=== PATIENT | female | born 1935 | race Hispanic/Latino ===

== ENCOUNTER 2023-02-28 14:22 | Emergency (ER) | payer MEDICARE, SELFPAY | END 2023-02-28 16:01 | disposition home or self-care (01) | LOC: ERS 14:22 | DX: L03.113 Cellulitis of right upper limb (principal); I10 Essential (primary) hypertension; E11.9 Type 2 diabetes mellitus without complications; Z79.82 Long term (current) use of aspirin; Z79.899 Other long term (current) drug therapy ==

== ENCOUNTER 2023-04-11 07:26 | Inpatient (IN) | payer MEDICARE ==
[2023-04-09 14:23] VITALS: BMI 27.8
[2023-04-11] MEDS ORDERED: Protamine Sulfate 50 MG/5 ML VIAL ONE ×2 (08:21→08:22)
[2023-04-11] MEDS ORDERED: Clindamycin/D5W 900 mg/50 ml Premix Bag ONE (08:21)
[2023-04-11] MEDS ORDERED: Heparin 10,000 UNITS/ 10 ML VIAL ONE ×2 (08:21→10:05)
[2023-04-11] MEDS ORDERED: fentaNYL 50 mcg/mL 1 mL Vial ONE ×3 (09:04→13:05)
[2023-04-11] MEDS ORDERED: Rocuronium Bromide 10 MG/ML (10ML VIAL) ONE (09:23)
[2023-04-11] MEDS ORDERED: Glycopyrrolate 0.2 MG/ML 5 ML SYRINGE ONE (09:23)
[2023-04-11] MEDS ORDERED: NEOSTIGMINE 3 MG/3 ML SYR 3 MG/3 ML SYRINGE ONE (09:23)
[2023-04-11] MEDS ORDERED: PROPOFOL 200 MG/20 ML VIAL ONE (09:23)
[2023-04-11] MEDS ORDERED: Ondansetron PF 4 MG/2 ML Vial ONE (09:23)
[2023-04-11] MEDS ORDERED: Ciprofloxacin Lactate/D5W 400 mg/200 ml Premix ONE (12:00)
[2023-04-11] MEDS ORDERED: Iopamidol 370 76% 100 ML VIAL ONE (12:17)
== END 2023-04-11 15:30 | disposition home or self-care (01) | DRG 274 ==
LOC: SURG A 07:26
PROVIDERS: ADMIT Internal Medicine Cardiovascular Disease; ATTEND Internal Medicine Cardiovascular Disease
PROC: 02L73DK Occlusion of Left Atrial Appendage with Intraluminal Device, Percutaneous Approach (ICD-10-PCS; principal; 2023-04-11)
PROC: B246ZZ4 Ultrasonography of Right and Left Heart, Transesophageal (ICD-10-PCS; 2023-04-11)
DX: I48.19 Other persistent atrial fibrillation (principal); E11.51 Type 2 diabetes mellitus with diabetic peripheral angiopathy without gangrene; Z96.653 Presence of artificial knee joint, bilateral; N18.9 Chronic kidney disease, unspecified; I25.10 Atherosclerotic heart disease of native coronary artery without angina pectoris; E11.22 Type 2 diabetes mellitus with diabetic chronic kidney disease; E78.5 Hyperlipidemia, unspecified; I12.9 Hypertensive chronic kidney disease with stage 1 through stage 4 chronic kidney disease, or unspecified chronic kidney disease; Z82.49 Family history of ischemic heart disease and other diseases of the circulatory system; Z86.73 Personal history of transient ischemic attack (TIA), and cerebral infarction without residual deficits; Z79.82 Long term (current) use of aspirin; Z79.01 Long term (current) use of anticoagulants; Z98.890 Other specified postprocedural states; Z88.8 Allergy status to other drugs, medicaments and biological substances; Z98.49 Cataract extraction status, unspecified eye; Z88.0 Allergy status to penicillin; Z79.4 Long term (current) use of insulin
CPT/HCPCS: 33340; 85347; 86850; 86900; 86901; 93005; 93010; 93306; 93312; C1759; C1760; C1769; C1894; J0744; J1644; J2405; J2704; J2720; J3010; J3490; Q9967

== ENCOUNTER 2023-05-23 05:57 | Day surgery (SDC) | payer MEDICARE ==
[2023-05-21 14:51] VITALS: BMI 27.4
[2023-05-23 07:10] LABS: Hemoglobin 10.9 g/dL (12.0-16.0); Mean Corpuscular HGB CONC 31.1 g/dL (32.0-36.0); Mean Corpuscular Hemoglobin 28.5 pg (27.0-31.0); Mean Corpuscular Volume 91.6 fl (78.0-98.0); Mean Platelet Volume 12.2 fL (7.4-10.4); Platelet Count 254 10x3/uL (130-400); RBC Distribution Width 15.5 % (11.5-14.5); Red Blood Cell (RBC) Count 3.83 mill/uL (4.20-5.40); White Blood Cell (WBC) Count 7.8 10x3/uL (4.8-10.8)
[2023-05-23] MEDS ORDERED: fentaNYL 50 mcg/mL 1 mL Vial ONE (07:23)
[2023-05-23] MEDS ORDERED: PROPOFOL 20 ML ONE (07:25)
[2023-05-23 07:39] LABS: Anion Gap 14 mmol/L (10-20); BUN (Urea Nitrogen) 51 mg/dL (9.8-20.1); Calc. Creatinine Clearance 26 mL/min (70-130); Calcium 9.4 mg/dL (7.8-10.44); Carbon Dioxide 23 mmol/L (23-31); Chloride 104 mmol/L (98-107); Estimated GFR 29; Glucose 119 mg/dL (83-110); Potassium 4.7 mmol/L (3.5-5.1); Sodium 136 mmol/L (136-145)
[2023-05-23] MEDS ORDERED: PROPOFOL 200 MG/20 ML VIAL ONE (07:40)
== END 2023-05-23 08:57 | disposition home or self-care (01) ==
LOC: SDC 05:57
PROVIDERS: ATTEND Internal Medicine Cardiovascular Disease
DX: I48.19 Other persistent atrial fibrillation (principal); Z88.0 Allergy status to penicillin; Z88.8 Allergy status to other drugs, medicaments and biological substances
CPT/HCPCS: 80048; 82962; 85027; 93312; J3010; 36416; J2704

== ENCOUNTER 2023-08-31 17:38 | Inpatient (IN) | payer MEDICARE ==
[2023-08-31 18:14] LABS: #Eosinphils 0.2 thou/uL (0.0-0.7); #Monocytes 0.8 thou/uL (0.11-0.59); #Neutrophils 7.2 thou/uL (1.40-6.50); %Basophils 0.3 % (0.0-1.0); %Eosinophils 2.6 % (0.0-10.0); %Lymphocytes 10.5 % (21.0-51.0); %Monocytes 8.6 % (0.0-10.0); %Neutrophils 77.4 % (42.0-75.0); Hematocrit 25.7 % (36.0-47.0); Mean Corpuscular HGB CONC 31.1 g/dL (32.0-36.0); Mean Corpuscular Hemoglobin 28.7 pg (27.0-31.0); Mean Corpuscular Volume 92.1 fl (78.0-98.0); Mean Platelet Volume 10.4 fL (7.4-10.4); Platelet Count 326 10x3/uL (130-400); RBC Distribution Width 17.2 % (11.5-14.5); Red Blood Cell (RBC) Count 2.79 mill/uL (4.20-5.40); White Blood Cell (WBC) Count 9.3 10x3/uL (4.8-10.8)
[2023-08-31 18:23] LABS: Actual Bicarbonate (HCO3v) 20.9 mEq/L (22-28); Base Excess -2.9 mEq/L (-2.0 to +3.0); Chloride (VBG) 107 mmol/L (98-106); Hematocrit-VBG 25 % (36.0-47.0); Hemoglobin (Hb) 8.6 g/dL (11.7-16.1); Potassium (VBG) 4.75 mmol/L (3.70-5.30); Sodium 142 mmol/L (133-146); pH (venous) 7.428 (7.32-7.43)
[2023-08-31 18:40] LABS: Troponin I Less than 0.010 ng/mL (< 0.028)
[2023-08-31 18:43] LABS: ALT (SGPT) 21 U/L (8-55); AST (SGOT) 23 U/L (5-34); Albumin 4.2 g/dL (3.4-4.8); Alkaline Phosphatase 113 U/L (40-110); Anion Gap 16 mmol/L (10-20); BUN (Urea Nitrogen) 37 mg/dL (9.8-20.1); Bilirubin, Total 0.4 mg/dL (0.2-1.2); Calc. Creatinine Clearance 0 mL/min (70-130); Calcium 9.2 mg/dL (7.8-10.44); Carbon Dioxide 21 mmol/L (23-31); Chloride 109 mmol/L (98-107); Estimated GFR 30; Globulin 3.2 g/dL (2.4-3.5); Glucose 149 mg/dL (83-110); Potassium 4.8 mmol/L (3.5-5.1); Protein, Total 7.4 g/dL (5.8-8.1); Sodium 141 mmol/L (136-145)
[2023-08-31] MEDS ORDERED: Furosemide 40 MG/4 ML VIAL ONE (19:02)
[2023-08-31] MEDS ORDERED: Nitroglycerin 2% Ointment 1 INCH/1 GM Packet ONE (19:03)
[2023-08-31] MEDS ORDERED: Nitroglycerin 0.4 MG TAB (25 Tab Bottle) ONE (19:03)
[2023-08-31] MEDS ORDERED: Aspirin Chewable 81 MG TAB ONE (19:03)
[2023-08-31 19:38] LABS: INR-International Normal Ratio 1.3; Prothrombin Time 16.3 sec (12.0-14.7)
[2023-08-31 19:39] LABS: PTT 31.6 sec (22.9-36.1)
[2023-08-31] MEDS ORDERED: Acetaminophen 325 MG TAB PO PRN (20:06)
[2023-08-31] MEDS ORDERED: Ondansetron PF 4 MG/2 ML Vial IVP PRN (20:06)
[2023-08-31] MEDS ORDERED: Dextrose 50% Abboject 50 ML SYRINGE SLOW IVP PRN (20:17)
[2023-08-31] MEDS ORDERED: Dextrose 5% in Water 1,000 ML IV PRN (20:17)
[2023-08-31] MEDS ORDERED: Glucagon 1 MG/ML KIT IM PRN (20:17)
[2023-08-31] MEDS ORDERED: HumaLOG 300 UNITS/3 ML VIAL SC PRN ×2 (20:17)
[2023-08-31 21:45] LABS: Troponin I Less than 0.010 ng/mL (< 0.028)
[2023-08-31 22:39] VITALS: BMI 25.0
[2023-09-01] MEDS: Nitroglycerin 2% Ointment 1 INCH/1 GM Packet TOP SCH ×2 (00:10→04:33)
[2023-09-01 04:57] LABS: #Eosinphils 0.3 thou/uL (0.0-0.7); #Monocytes 0.8 thou/uL (0.11-0.59); #Neutrophils 4.6 thou/uL (1.40-6.50); %Basophils 0.3 % (0.0-1.0); %Eosinophils 4.5 % (0.0-10.0); %Lymphocytes 13.8 % (21.0-51.0); %Monocytes 12.2 % (0.0-10.0); %Neutrophils 68.9 % (42.0-75.0); Hematocrit 24.6 % (36.0-47.0); Hemoglobin 7.5 g/dL (12.0-16.0); Mean Corpuscular HGB CONC 30.5 g/dL (32.0-36.0); Mean Corpuscular Hemoglobin 27.8 pg (27.0-31.0); Mean Corpuscular Volume 91.1 fl (78.0-98.0); Mean Platelet Volume 11.1 fL (7.4-10.4); Platelet Count 294 10x3/uL (130-400); RBC Distribution Width 17.2 % (11.5-14.5); White Blood Cell (WBC) Count 6.7 10x3/uL (4.8-10.8)
[2023-09-01 05:26] LABS: Iron 38 ug/dL (50-170); Iron Binding Capacity, Total 253 mcg/dL (265-497)
[2023-09-01 05:39] LABS: Anion Gap 11 mmol/L (10-20); BUN (Urea Nitrogen) 35 mg/dL (9.8-20.1); Calc. Creatinine Clearance 28 mL/min (70-130); Calcium 9.3 mg/dL (7.8-10.44); Carbon Dioxide 26 mmol/L (23-31); Chloride 108 mmol/L (98-107); Estimated GFR 32; Glucose 64 mg/dL (83-110); Iron 38 ug/dL (50-170); Iron Binding Capacity, Total 264 mcg/dL (265-497); Potassium 4.3 mmol/L (3.5-5.1); Sodium 141 mmol/L (136-145)
[2023-09-01] MEDS: Furosemide 40 MG/4 ML VIAL SLOW IVP SCH ×2 (06:10→13:26)
[2023-09-01] MEDS ORDERED: dilTIAZem CD 180 MG CAP PO SCH (09:00)
[2023-09-01] MEDS: Empagliflozin 25 MG TAB PO SCH (10:34)
[2023-09-01] MEDS: Sodium Bicarbonate Tab 325 MG TAB PO SCH ×2 (10:34→21:42)
[2023-09-01] MEDS: hydrALAZINE 25 MG TAB PO SCH ×3 (10:34→21:42)
[2023-09-01] MEDS: Escitalopram Oxalate 10 mg Tablet PO SCH (10:34)
[2023-09-01] MEDS: Insulin Glargine 30 UNITS/0.3 ML VIAL SC SCH (10:35)
[2023-09-01] MEDS ORDERED: dilTIAZem CD 240 MG CAP PO SCH (11:00)
[2023-09-01] MEDS ORDERED: Epoetin (ESRD) 10,000 UNITS/ML VIAL SC SCH (12:00)
[2023-09-01] MEDS: Iron, Sodium Ferric Gluconate 250 MG in Sodium Chloride 0.9% 250 ML 250 ML IVPB SCH (13:26)
[2023-09-01] MEDS ORDERED: Labetalol HCl 100 MG/20 ML VIAL SLOW IVP PRN (15:42)
[2023-09-01] MEDS: Heparin 5,000 UNITS/ML VIAL SC SCH (21:41)
[2023-09-01] MEDS: Aspirin 81 mg Enteric Coated Tablet PO SCH (21:42)
[2023-09-01] MEDS: Clopidogrel Bisulfate 75 MG TAB PO SCH (21:42)
[2023-09-01] MEDS: Rosuvastatin 10 MG TAB PO SCH (21:42)
[2023-09-01] MEDS: dilTIAZem CD 240 MG CAP PO SCH (21:42)
[2023-09-02 05:04] LABS: #Eosinphils 0.2 thou/uL (0.0-0.7); #Neutrophils 4.6 thou/uL (1.40-6.50); %Basophils 0.3 % (0.0-1.0); %Eosinophils 3.2 % (0.0-10.0); %Lymphocytes 15.8 % (21.0-51.0); %Monocytes 13.9 % (0.0-10.0); %Neutrophils 66.4 % (42.0-75.0); Hematocrit 26.3 % (36.0-47.0); Hemoglobin 8.2 g/dL (12.0-16.0); Mean Corpuscular HGB CONC 31.2 g/dL (32.0-36.0); Mean Corpuscular Hemoglobin 27.9 pg (27.0-31.0); Mean Corpuscular Volume 89.5 fl (78.0-98.0); Platelet Count 304 10x3/uL (130-400); Red Blood Cell (RBC) Count 2.94 mill/uL (4.20-5.40)
[2023-09-02 05:24] LABS: Anion Gap 13 mmol/L (10-20); BUN (Urea Nitrogen) 39 mg/dL (9.8-20.1); Calc. Creatinine Clearance 24 mL/min (70-130); Calcium 9.3 mg/dL (7.8-10.44); Carbon Dioxide 27 mmol/L (23-31); Chloride 102 mmol/L (98-107); Estimated GFR 28; Glucose 92 mg/dL (83-110); Potassium 3.8 mmol/L (3.5-5.1); Sodium 138 mmol/L (136-145)
[2023-09-02] MEDS: Furosemide 40 MG/4 ML VIAL SLOW IVP SCH (05:55)
[2023-09-02] MEDS: Sodium Bicarbonate Tab 325 MG TAB PO SCH ×2 (09:32→20:09)
[2023-09-02] MEDS: dilTIAZem CD 240 MG CAP PO SCH ×2 (09:33→20:09)
[2023-09-02] MEDS: hydrALAZINE 25 MG TAB PO SCH ×3 (09:33→20:09)
[2023-09-02] MEDS: Empagliflozin 25 MG TAB PO SCH (09:33)
[2023-09-02] MEDS: Escitalopram Oxalate 10 mg Tablet PO SCH (09:33)
[2023-09-02] MEDS: Heparin 5,000 UNITS/ML VIAL SC SCH ×3 (09:33→20:10)
[2023-09-02] MEDS: Insulin Glargine 30 UNITS/0.3 ML VIAL SC SCH (09:34)
[2023-09-02] MEDS: Iron, Sodium Ferric Gluconate 250 MG in Sodium Chloride 0.9% 250 ML 250 ML IVPB SCH (15:18)
[2023-09-02] MEDS: Rosuvastatin 10 MG TAB PO SCH (20:09)
[2023-09-02] MEDS: Aspirin 81 mg Enteric Coated Tablet PO SCH (20:09)
[2023-09-02] MEDS: Clopidogrel Bisulfate 75 MG TAB PO SCH (20:09)
[2023-09-03 06:32] LABS: #Eosinphils 0.3 thou/uL (0.0-0.7); #Monocytes 1.1 thou/uL (0.11-0.59); #Neutrophils 5.7 thou/uL (1.40-6.50); %Basophils 0.5 % (0.0-1.0); %Eosinophils 3.3 % (0.0-10.0); %Lymphocytes 16.5 % (21.0-51.0); %Monocytes 12.7 % (0.0-10.0); %Neutrophils 66.3 % (42.0-75.0); Hematocrit 27.4 % (36.0-47.0); Hemoglobin 8.4 g/dL (12.0-16.0); Mean Corpuscular HGB CONC 30.7 g/dL (32.0-36.0); Mean Corpuscular Hemoglobin 27.8 pg (27.0-31.0); Mean Corpuscular Volume 90.7 fl (78.0-98.0); Mean Platelet Volume 10.6 fL (7.4-10.4); Platelet Count 273 10x3/uL (130-400); RBC Distribution Width 17.2 % (11.5-14.5); Red Blood Cell (RBC) Count 3.02 mill/uL (4.20-5.40); White Blood Cell (WBC) Count 8.6 10x3/uL (4.8-10.8)
[2023-09-03 07:01] LABS: Anion Gap 16 mmol/L (10-20); BUN (Urea Nitrogen) 43 mg/dL (9.8-20.1); Calc. Creatinine Clearance 20 mL/min (70-130); Carbon Dioxide 25 mmol/L (23-31); Chloride 103 mmol/L (98-107); Estimated GFR 23; Glucose 106 mg/dL (83-110); Potassium 4.1 mmol/L (3.5-5.1); Sodium 140 mmol/L (136-145)
[2023-09-03] MEDS ORDERED: Spironolactone 25 MG TAB PO SCH (08:00)
[2023-09-03] MEDS ORDERED: FLU VACC QS2023(65UP)/MF59C/PF 60 MCG/0.5 ML SYRINGE IM ONE (09:00)
[2023-09-03] MEDS: Insulin Glargine 30 UNITS/0.3 ML VIAL SC SCH (09:16)
[2023-09-03] MEDS: hydrALAZINE 25 MG TAB PO SCH ×2 (09:17→16:00)
[2023-09-03] MEDS: Escitalopram Oxalate 10 mg Tablet PO SCH (09:17)
[2023-09-03] MEDS: Heparin 5,000 UNITS/ML VIAL SC SCH ×2 (09:17→16:00)
[2023-09-03] MEDS: dilTIAZem CD 240 MG CAP PO SCH (09:17)
[2023-09-03] MEDS: Sodium Bicarbonate Tab 325 MG TAB PO SCH (09:17)
[2023-09-03] MEDS: Iron, Sodium Ferric Gluconate 250 MG in Sodium Chloride 0.9% 250 ML 250 ML IVPB SCH (13:03)
[2023-09-03 16:11] VITALS: BP 159/67; TEMP 97.5
== END 2023-09-03 17:05 | disposition home or self-care (01) | DRG 291 ==
LOC: ERS 17:38 → 2NO 19:46
PROVIDERS: ADMIT Internal Medicine; ATTEND Hospitalist
PROC: 4A043R1 Measurement of Venous Saturation, Peripheral, Percutaneous Approach (ICD-10-PCS; principal; 2023-08-31)
DX: I13.0 Hypertensive heart and chronic kidney disease with heart failure and stage 1 through stage 4 chronic kidney disease, or unspecified chronic kidney disease (principal); I50.33 Acute on chronic diastolic (congestive) heart failure; N18.4 Chronic kidney disease, stage 4 (severe); N17.9 Acute kidney failure, unspecified; E87.20 Acidosis, unspecified; I48.21 Permanent atrial fibrillation; Z88.6 Allergy status to analgesic agent; Z88.0 Allergy status to penicillin; Z88.8 Allergy status to other drugs, medicaments and biological substances; Z79.899 Other long term (current) drug therapy; Z79.82 Long term (current) use of aspirin; Z79.4 Long term (current) use of insulin; I25.10 Atherosclerotic heart disease of native coronary artery without angina pectoris; E78.5 Hyperlipidemia, unspecified; E11.22 Type 2 diabetes mellitus with diabetic chronic kidney disease; D63.1 Anemia in chronic kidney disease; Z96.653 Presence of artificial knee joint, bilateral; Z98.890 Other specified postprocedural states; Z82.49 Family history of ischemic heart disease and other diseases of the circulatory system; R80.9 Proteinuria, unspecified; F32.A Depression, unspecified; I73.9 Peripheral vascular disease, unspecified; E11.51 Type 2 diabetes mellitus with diabetic peripheral angiopathy without gangrene
CPT/HCPCS: 36415; 36416; 71045; 80048; 80053; 82728; 82805; 83540; 83550; 83880; 84484; 85025; 85610; 85730; 86850; 86900; 86901; 93005; 94760; 96374; 97139; J1644; J1815; J1940; J2916; J7050; Q4081

== ENCOUNTER 2023-12-02 17:33 | Inpatient (IN) | payer MEDICARE ==
[2023-12-02 18:06] LABS: #Eosinphils 0.3 thou/uL (0.0-0.7); #Monocytes 0.8 thou/uL (0.11-0.59); #Neutrophils 12.5 thou/uL (1.40-6.50); %Basophils 0.2 % (0.0-1.0); %Eosinophils 1.8 % (0.0-10.0); %Lymphocytes 8.5 % (21.0-51.0); %Monocytes 5.1 % (0.0-10.0); %Neutrophils 84.1 % (42.0-75.0); Hematocrit 36.8 % (36.0-47.0); Hemoglobin 11.7 g/dL (12.0-16.0); Mean Corpuscular HGB CONC 31.8 g/dL (32.0-36.0); Mean Corpuscular Hemoglobin 28.5 pg (27.0-31.0); Mean Corpuscular Volume 89.5 fl (78.0-98.0); Mean Platelet Volume 11.6 fL (7.4-10.4); Platelet Count 200 10x3/uL (130-400); RBC Distribution Width 17.2 % (11.5-14.5); Red Blood Cell (RBC) Count 4.11 mill/uL (4.20-5.40); White Blood Cell (WBC) Count 14.8 10x3/uL (4.8-10.8)
[2023-12-02] MEDS ORDERED: Ondansetron PF 4 MG/2 ML Vial ONE (18:06)
[2023-12-02 18:32] LABS: ALT (SGPT) 49 U/L (8-55); AST (SGOT) 39 U/L (5-34); Albumin 4.5 g/dL (3.4-4.8); Alkaline Phosphatase 101 U/L (40-110); Anion Gap 16 mmol/L (10-20); BUN (Urea Nitrogen) 57 mg/dL (9.8-20.1); Bilirubin, Total 0.3 mg/dL (0.2-1.2); Calc. Creatinine Clearance 0 mL/min (70-130); Calcium 9.3 mg/dL (7.8-10.44); Carbon Dioxide 23 mmol/L (23-31); Chloride 106 mmol/L (98-107); Estimated GFR 24; Globulin 3.3 g/dL (2.4-3.5); Glucose 156 mg/dL (83-110); Potassium 4.9 mmol/L (3.5-5.1); Protein, Total 7.8 g/dL (5.8-8.1); Sodium 140 mmol/L (136-145)
[2023-12-02 20:06] LABS: Troponin I Less than 0.010 ng/mL (< 0.028)
[2023-12-02] MEDS ORDERED: CEFAZOLIN 2 GM VIAL ONE (22:11)
[2023-12-03] MEDS ORDERED: fentaNYL PF 100 MCG/2 ML SYRINGE ONE (01:28)
[2023-12-03] MEDS ORDERED: Vasopressin 20 UNITS/ML VIAL ONE (01:29)
[2023-12-03] MEDS ORDERED: PROPOFOL 20 ML ONE (01:55)
[2023-12-03] MEDS ORDERED: Dexamethasone 4 mg/ml Vial ONE (01:57)
[2023-12-03] MEDS ORDERED: Ondansetron PF 4 MG/2 ML Vial ONE (01:57)
[2023-12-03] MEDS ORDERED: fentaNYL 50 mcg/mL 1 mL Vial ONE (01:58)
[2023-12-03] MEDS ORDERED: EPINEPHrine 1 MG/ML VIAL ONE (01:59)
[2023-12-03] MEDS ORDERED: Bupivacaine PF 0.5% 30 ML VIAL ONE (02:00)
[2023-12-03] MEDS ORDERED: SUCCINYLCHOLINE/SOD CL,ISO/PF 200 MG/10 ML SYRINGE FS ONE (02:52)
[2023-12-03] MEDS ORDERED: CEFAZOLIN 1 GM VIAL ONE (02:59)
[2023-12-03] MEDS ORDERED: Ondansetron HCl/PF 4 MG/2 ML Vial IVP PRN (03:16)
[2023-12-03] MEDS ORDERED: Morphine Sulfate 2 MG/ML SYRINGE SLOW IVP PRN (03:16)
[2023-12-03] MEDS ORDERED: SUGAMMADEX SODIUM 200 MG/2 ML VIAL ONE (03:41)
[2023-12-03] MEDS ORDERED: Ondansetron PF 4 MG/2 ML Vial IVP PRN (04:19)
[2023-12-03] MEDS ORDERED: Dextrose 50% Abboject 50 ML SYRINGE SLOW IVP PRN (04:19)
[2023-12-03] MEDS ORDERED: Glucagon 1 MG/ML KIT IM PRN (04:19)
[2023-12-03] MEDS ORDERED: traMADol HCl 50 MG TAB PO PRN (04:19)
[2023-12-03] MEDS ORDERED: Ondansetron ODT 4 MG TAB PO PRN (04:19)
[2023-12-03] MEDS ORDERED: Morphine 2 MG/ML VIAL SLOW IVP PRN (04:19)
[2023-12-03] MEDS ORDERED: HumaLOG 300 UNITS/3 ML VIAL SC PRN (04:19)
[2023-12-03] MEDS ORDERED: Dextrose 5% in Water 1,000 ML IV PRN (04:19)
[2023-12-03] MEDS: Sodium Chloride 0.45% 1,000 ML IV SCH (05:41)
[2023-12-03] MEDS ORDERED: hydrALAZINE 20 MG/ML VIAL ONE (05:47)
[2023-12-03] MEDS: hydrALAZINE 20 MG/ML VIAL SLOW IVP PRN (05:49)
[2023-12-03 08:02] VITALS: BMI 24.5
[2023-12-03] MEDS: Sodium Bicarbonate Tab 325 MG TAB PO SCH (10:07)
[2023-12-03] MEDS: hydrALAZINE 25 MG TAB PO SCH (10:08)
[2023-12-03] MEDS: dilTIAZem CD 240 MG CAP PO SCH (10:09)
[2023-12-03] MEDS: Famotidine 20 MG TAB PO SCH (10:09)
[2023-12-03] MEDS: Empagliflozin 25 MG TAB PO SCH (10:10)
[2023-12-03] MEDS: Acetaminophen 500 MG TAB PO SCH (10:10)
[2023-12-03] MEDS: Polyethylene Glycol 3350 17 GM Packet PO SCH (10:11)
[2023-12-03] MEDS: Escitalopram Oxalate 10 mg Tablet PO SCH ×2 (10:11→20:16)
[2023-12-03] MEDS: Insulin Glargine 30 UNITS/0.3 ML VIAL SC SCH (13:38)
[2023-12-03] MEDS: Digoxin 0.5 MG/2 ML AMP SLOW IVP SCH (16:05)
[2023-12-03] MEDS: IRON CARBONYL PO SCH (16:09)
[2023-12-03] MEDS: ASCORBIC ACID PO SCH (16:09)
[2023-12-03] MEDS: Aspirin 81 mg Enteric Coated Tablet PO SCH (20:16)
[2023-12-03] MEDS: Rosuvastatin 10 MG TAB PO SCH (20:16)
[2023-12-03] MEDS ORDERED: Clopidogrel Bisulfate 75 MG TAB PO SCH (21:00)
[2023-12-03] MEDS: Enoxaparin 30 MG (0.3 mL) SYRINGE SC SCH (21:01)
[2023-12-04 04:36] LABS: #Eosinphils 0.1 thou/uL (0.0-0.7); #Monocytes 1.4 thou/uL (0.11-0.59); #Neutrophils 9.2 thou/uL (1.40-6.50); %Basophils 0.2 % (0.0-1.0); %Eosinophils 1.1 % (0.0-10.0); %Lymphocytes 11.3 % (21.0-51.0); %Monocytes 11.2 % (0.0-10.0); %Neutrophils 75.9 % (42.0-75.0); Hematocrit 29.2 % (36.0-47.0); Hemoglobin 8.9 g/dL (12.0-16.0); Mean Corpuscular HGB CONC 30.5 g/dL (32.0-36.0); Mean Corpuscular Hemoglobin 27.9 pg (27.0-31.0); Mean Corpuscular Volume 91.5 fl (78.0-98.0); Mean Platelet Volume 11.8 fL (7.4-10.4); Platelet Count 157 10x3/uL (130-400); RBC Distribution Width 17.4 % (11.5-14.5); Red Blood Cell (RBC) Count 3.19 mill/uL (4.20-5.40); White Blood Cell (WBC) Count 12.1 10x3/uL (4.8-10.8)
[2023-12-04 05:01] LABS: ALT (SGPT) 8 U/L (8-55); AST (SGOT) 22 U/L (5-34); Albumin 3.4 g/dL (3.4-4.8); Alkaline Phosphatase 73 U/L (40-110); Anion Gap 13 mmol/L (10-20); BUN (Urea Nitrogen) 51 mg/dL (9.8-20.1); Bilirubin, Total 0.2 mg/dL (0.2-1.2); Calc. Creatinine Clearance 20 mL/min (70-130); Calcium 8.3 mg/dL (7.8-10.44); Carbon Dioxide 21 mmol/L (23-31); Chloride 111 mmol/L (98-107); Estimated GFR 24; Globulin 2.5 g/dL (2.4-3.5); Glucose 116 mg/dL (83-110); Potassium 4.5 mmol/L (3.5-5.1); Protein, Total 5.9 g/dL (5.8-8.1); Sodium 140 mmol/L (136-145)
[2023-12-04 07:46] VITALS: BP 152/59; TEMP 98
[2023-12-04] MEDS: Famotidine 20 MG TAB PO SCH (09:03)
== END 2023-12-04 11:20 | disposition home or self-care (01) | DRG 351 ==
LOC: ERS 17:33 → ERHOLD 22:11 → SURG A 12-03 02:20 → 2SE 12-03 07:52 → OBSVTOIN 12-03 13:45
PROVIDERS: ADMIT Specialist; ATTEND Specialist
PROC: 0YQ70ZZ Repair Right Femoral Region, Open Approach (ICD-10-PCS; principal; 2023-12-03)
DX: K41.30 Unilateral femoral hernia, with obstruction, without gangrene, not specified as recurrent (principal); I13.0 Hypertensive heart and chronic kidney disease with heart failure and stage 1 through stage 4 chronic kidney disease, or unspecified chronic kidney disease; K40.30 Unilateral inguinal hernia, with obstruction, without gangrene, not specified as recurrent; I48.20 Chronic atrial fibrillation, unspecified; I50.32 Chronic diastolic (congestive) heart failure; Z66 Do not resuscitate; I25.10 Atherosclerotic heart disease of native coronary artery without angina pectoris; N18.9 Chronic kidney disease, unspecified; I50.9 Heart failure, unspecified; E11.51 Type 2 diabetes mellitus with diabetic peripheral angiopathy without gangrene; M10.9 Gout, unspecified; Z79.82 Long term (current) use of aspirin; Z98.890 Other specified postprocedural states; Z88.0 Allergy status to penicillin; Z88.8 Allergy status to other drugs, medicaments and biological substances; Z79.4 Long term (current) use of insulin; Z79.899 Other long term (current) drug therapy
CPT/HCPCS: 36415; 36416; 71045; 74176; 80053; 83605; 84484; 85025; 87040; 93005; G0378; J0171; J0360; J0665; J0690; J1100; J1160; J1815; J2405; J2704; J3010

== ENCOUNTER 2024-04-14 10:04 | Inpatient (IN) | payer MEDICARE ==
[2024-04-14 12:22] LABS: #Basophils Less than 0.03 10x3/uL (0.0-0.2); %Basophils 0.3 % (0.0-1.0); %Eosinophils 2.1 % (0.0-10.0); %Lymphocytes 13.2 % (21.0-51.0); Hematocrit 31.6 % (36.0-47.0); Hemoglobin 9.7 g/dL (12.0-16.0); Mean Corpuscular HGB CONC 30.7 g/dL (32.0-36.0); Mean Corpuscular Hemoglobin 29.9 pg (27.0-31.0); Mean Corpuscular Volume 97.5 fL (78.0-98.0); Mean Platelet Volume 11.8 fL (7.4-10.4); Platelet Count 172 10x3/uL (130-400); RBC Distribution Width 16.4 % (11.5-14.5); Red Blood Cell (RBC) Count 3.24 mill/uL (4.20-5.40)
[2024-04-14 12:44] LABS: ALT (SGPT) 77 U/L (8-55); AST (SGOT) 58 U/L (5-34); Albumin 4.2 g/dL (3.4-4.8); Alkaline Phosphatase 115 U/L (40-110); Anion Gap 16 mmol/L (10-20); BUN (Urea Nitrogen) 54 mg/dL (9.8-20.1); Bilirubin, Total 0.5 mg/dL (0.2-1.2); Calc. Creatinine Clearance 0 mL/min (70-130); Calcium 9.3 mg/dL (7.8-10.44); Carbon Dioxide 21 mmol/L (23-31); Chloride 113 mmol/L (98-107); Estimated GFR 25; Globulin 3.1 g/dL (2.4-3.5); Glucose 123 mg/dL (83-110); Lipase 17 U/L (8-78); Potassium 4.5 mmol/L (3.5-5.1); Protein, Total 7.3 g/dL (5.8-8.1); Sodium 145 mmol/L (136-145)
[2024-04-14 13:13] LABS: Troponin I Less than 0.010 ng/mL (< 0.028)
[2024-04-14] MEDS ORDERED: Nitroglycerin 0.4 MG TAB 1 EACH ONE (13:24)
[2024-04-14] MEDS ORDERED: Nitroglycerin 2% Ointment 1 INCH/1 GM Packet ONE (13:24)
[2024-04-14] MEDS ORDERED: Furosemide 40 MG (4 mL) VIAL ONE (13:24)
[2024-04-14] MEDS ORDERED: Acetaminophen 325 MG TAB PO PRN (14:53)
[2024-04-14] MEDS ORDERED: Ondansetron PF 4 MG/2 ML Vial IVP PRN (14:53)
[2024-04-14] MEDS ORDERED: hydrALAZINE 20 MG/ML VIAL SLOW IVP PRN (14:59)
[2024-04-14] MEDS ORDERED: Glucagon 1 MG/ML KIT IM PRN (15:00)
[2024-04-14] MEDS ORDERED: Dextrose 5% in Water 1,000 ML IV PRN (15:00)
[2024-04-14] MEDS ORDERED: Dextrose 50% Abboject 50 ML SYRINGE SLOW IVP PRN (15:00)
[2024-04-14] MEDS ORDERED: Electrolyte Replacement Protocol 1 EACH FS SCH (15:23)
[2024-04-14] MEDS ORDERED: Heparin 5,000 UNITS/ML VIAL ONE (16:36)
[2024-04-14] MEDS ORDERED: hydrALAZINE 25 MG TAB ONE (16:36)
[2024-04-14] MEDS: Heparin 5,000 UNITS/ML VIAL SC SCH (16:40)
[2024-04-14] MEDS: hydrALAZINE 25 MG TAB PO SCH (16:41)
[2024-04-14 20:03] VITALS: BMI 28.3
[2024-04-14 20:28] LABS: Troponin I 0.013 ng/mL (< 0.028)
[2024-04-14 21:10] LABS: Troponin I 0.012 ng/mL (< 0.028)
[2024-04-15] MEDS: Furosemide 20 MG (2 mL) VIAL SLOW IVP SCH (05:26)
[2024-04-15 06:14] LABS: #Basophils 0.03 10x3/uL (0.0-0.2); %Basophils 0.5 % (0.0-1.0); %Eosinophils 4.2 % (0.0-10.0); %Lymphocytes 15.8 % (21.0-51.0); %Monocytes 11.6 % (0.0-10.0); %Neutrophils 67.6 % (42.0-75.0); Hematocrit 30.3 % (36.0-47.0); Hemoglobin 9.3 g/dL (12.0-16.0); Mean Corpuscular HGB CONC 30.7 g/dL (32.0-36.0); Mean Corpuscular Hemoglobin 29.1 pg (27.0-31.0); Mean Corpuscular Volume 94.7 fL (78.0-98.0); Mean Platelet Volume 11.6 fL (7.4-10.4); Platelet Count 166 10x3/uL (130-400); RBC Distribution Width 16.4 % (11.5-14.5)
[2024-04-15 06:33] LABS: Anion Gap 18 mmol/L (10-20); BUN (Urea Nitrogen) 52 mg/dL (9.8-20.1); Calc. Creatinine Clearance 23 mL/min (70-130); Carbon Dioxide 20 mmol/L (23-31); Chloride 112 mmol/L (98-107); Estimated GFR 24; Glucose 80 mg/dL (83-110); Magnesium 2.3 mg/dL (1.6-2.6); Potassium 4.3 mmol/L (3.5-5.1); Sodium 146 mmol/L (136-145)
[2024-04-15 08:12] LABS: Hemoglobin A1c 5.4 % (4.0-6.0)
[2024-04-15] MEDS ORDERED: dilTIAZem CD 240 MG CAP PO SCH (09:00)
[2024-04-15] MEDS: dilTIAZem CD 180 MG CAP PO SCH (09:31)
[2024-04-15] MEDS: Rosuvastatin 10 MG TAB PO SCH (09:32)
[2024-04-15] MEDS: HumaLOG 300 UNITS/3 ML VIAL SC PRN (12:15)
[2024-04-15] MEDS ORDERED: Non-Formulary Item 1 EACH (Sodium Bicarbonate [Sodium Bicarbonate] 650 MG Tablet) PO SCH (15:00)
[2024-04-15] MEDS: Sodium Bicarbonate Tab 325 MG TAB PO SCH (15:05)
[2024-04-15] MEDS: Isosorbide Dinitrate 20 MG TAB PO SCH (15:05)
[2024-04-15] MEDS: Escitalopram Oxalate 10 mg Tablet PO SCH (21:08)
[2024-04-16 05:38] LABS: #Basophils Less than 0.03 10x3/uL (0.0-0.2); %Basophils 0.3 % (0.0-1.0); %Eosinophils 3.3 % (0.0-10.0); %Lymphocytes 11.5 % (21.0-51.0); %Monocytes 12.2 % (0.0-10.0); %Neutrophils 72.6 % (42.0-75.0); Hematocrit 27.8 % (36.0-47.0); Hemoglobin 8.5 g/dL (12.0-16.0); Mean Corpuscular HGB CONC 30.6 g/dL (32.0-36.0); Mean Corpuscular Hemoglobin 28.9 pg (27.0-31.0); Mean Corpuscular Volume 94.6 fL (78.0-98.0); Mean Platelet Volume 11.9 fL (7.4-10.4); Platelet Count 149 10x3/uL (130-400); RBC Distribution Width 16.1 % (11.5-14.5); Red Blood Cell (RBC) Count 2.94 mill/uL (4.20-5.40)
[2024-04-16 06:26] LABS: Anion Gap 13 mmol/L (10-20); BUN (Urea Nitrogen) 48 mg/dL (9.8-20.1); Calc. Creatinine Clearance 24 mL/min (70-130); Calcium 8.7 mg/dL (7.8-10.44); Carbon Dioxide 25 mmol/L (23-31); Chloride 109 mmol/L (98-107); Estimated GFR 26; Glucose 124 mg/dL (83-110); Potassium 4.2 mmol/L (3.5-5.1); Sodium 143 mmol/L (136-145)
[2024-04-16] MEDS: hydrALAZINE 25 MG TAB PO SCH (09:20)
[2024-04-16 12:21] VITALS: BP 143/83; TEMP 98.4
== END 2024-04-16 15:15 | disposition home health service (06) | DRG 291 ==
LOC: ERS 10:04 → ERHOLD 14:22 → 2SW 19:32 → OBSVTOIN 04-16 10:19
PROVIDERS: ADMIT Internal Medicine; ATTEND Internal Medicine
DX: I13.0 Hypertensive heart and chronic kidney disease with heart failure and stage 1 through stage 4 chronic kidney disease, or unspecified chronic kidney disease (principal); I50.33 Acute on chronic diastolic (congestive) heart failure; N17.9 Acute kidney failure, unspecified; I48.20 Chronic atrial fibrillation, unspecified; N18.9 Chronic kidney disease, unspecified; I25.10 Atherosclerotic heart disease of native coronary artery without angina pectoris; E11.22 Type 2 diabetes mellitus with diabetic chronic kidney disease; E11.51 Type 2 diabetes mellitus with diabetic peripheral angiopathy without gangrene; D63.1 Anemia in chronic kidney disease; F32.A Depression, unspecified; E78.5 Hyperlipidemia, unspecified; Z96.653 Presence of artificial knee joint, bilateral; Z88.0 Allergy status to penicillin; Z98.890 Other specified postprocedural states; Z88.8 Allergy status to other drugs, medicaments and biological substances; Z79.82 Long term (current) use of aspirin; Z79.4 Long term (current) use of insulin; Z79.899 Other long term (current) drug therapy; Z98.49 Cataract extraction status, unspecified eye
CPT/HCPCS: 36415; 36416; 71045; 80048; 80053; 83036; 83690; 83735; 83880; 84484; 85025; 93005; 93306; 93970; 96374; J1644; J1815; J1940

== ENCOUNTER 2024-04-19 04:07 | Inpatient (IN) | payer MEDICARE ==
[2024-04-19 04:44] VITALS: BMI 26.6
[2024-04-19 05:40] LABS: #Basophils Less than 0.03 10x3/uL (0.0-0.2); %Basophils 0.3 % (0.0-1.0); %Eosinophils 2.8 % (0.0-10.0); %Lymphocytes 11.9 % (21.0-51.0); %Monocytes 13.7 % (0.0-10.0); %Neutrophils 70.9 % (42.0-75.0); Hematocrit 33.5 % (36.0-47.0); Hemoglobin 10.5 g/dL (12.0-16.0); Mean Corpuscular HGB CONC 31.3 g/dL (32.0-36.0); Mean Corpuscular Hemoglobin 29.2 pg (27.0-31.0); Mean Corpuscular Volume 93.3 fL (78.0-98.0); Mean Platelet Volume 12.6 fL (7.4-10.4); Platelet Count 151 10x3/uL (130-400); RBC Distribution Width 15.9 % (11.5-14.5); Red Blood Cell (RBC) Count 3.59 mill/uL (4.20-5.40)
[2024-04-19] MEDS: hydrALAZINE 25 MG TAB PO SCH ×2 (05:54→09:01)
[2024-04-19 06:47] LABS: Troponin I 0.014 ng/mL (< 0.028)
[2024-04-19] MEDS ORDERED: Torsemide 20 MG TAB PO SCH (09:00)
[2024-04-19] MEDS: Empagliflozin 25 MG TAB PO SCH (09:02)
[2024-04-19] MEDS: Sodium Bicarbonate Tab 325 MG TAB PO SCH (09:02)
[2024-04-19] MEDS: Aspirin 81 mg Enteric Coated Tablet PO SCH (09:02)
[2024-04-19] MEDS: Rosuvastatin 10 MG TAB PO SCH (09:02)
[2024-04-19] MEDS: dilTIAZem CD 120 MG CAP PO SCH (09:02)
[2024-04-19] MEDS: Ferrous Sulfate 325 MG TAB PO SCH (09:02)
[2024-04-19] MEDS: Isosorbide Dinitrate 20 MG TAB PO SCH (09:02)
[2024-04-19] MEDS ORDERED: Dextrose 50% Abboject 50 ML SYRINGE SLOW IVP PRN (10:15)
[2024-04-19] MEDS ORDERED: Dextrose 5% in Water 1,000 ML IV PRN (10:15)
[2024-04-19] MEDS ORDERED: Glucagon 1 MG/ML KIT IM PRN (10:15)
[2024-04-19 10:33] LABS: ALT (SGPT) 34 U/L (8-55); AST (SGOT) 25 U/L (5-34); Alkaline Phosphatase 95 U/L (40-110); Anion Gap 16 mmol/L (10-20); BUN (Urea Nitrogen) 40 mg/dL (9.8-20.1); Bilirubin, Total 0.7 mg/dL (0.2-1.2); Calc. Creatinine Clearance 26 mL/min (70-130); Calcium 9.8 mg/dL (7.8-10.44); Carbon Dioxide 24 mmol/L (23-31); Chloride 107 mmol/L (98-107); Estimated GFR 31; Globulin 3.2 g/dL (2.4-3.5); Glucose 112 mg/dL (83-110); Potassium 3.7 mmol/L (3.5-5.1); Protein, Total 7.2 g/dL (5.8-8.1); Sodium 143 mmol/L (136-145)
[2024-04-19] MEDS: Insulin Glargine 30 UNITS/0.3 ML VIAL SC SCH (12:16)
[2024-04-19] MEDS: Furosemide 40 MG (4 mL) VIAL SLOW IVP SCH (14:53)
[2024-04-19] MEDS: Escitalopram Oxalate 10 mg Tablet PO SCH (21:02)
[2024-04-20 04:55] LABS: #Basophils Less than 0.03 10x3/uL (0.0-0.2); %Basophils 0.1 % (0.0-1.0); %Eosinophils 2.8 % (0.0-10.0); %Lymphocytes 13.5 % (21.0-51.0); %Monocytes 13.9 % (0.0-10.0); %Neutrophils 69.2 % (42.0-75.0); Hematocrit 31.6 % (36.0-47.0); Hemoglobin 10.2 g/dL (12.0-16.0); Mean Corpuscular HGB CONC 32.3 g/dL (32.0-36.0); Mean Corpuscular Hemoglobin 30.4 pg (27.0-31.0); Mean Corpuscular Volume 94.3 fL (78.0-98.0); Mean Platelet Volume 11.4 fL (7.4-10.4); Platelet Count 180 10x3/uL (130-400); RBC Distribution Width 15.7 % (11.5-14.5); Red Blood Cell (RBC) Count 3.35 mill/uL (4.20-5.40)
[2024-04-20 05:37] LABS: Anion Gap 16 mmol/L (10-20); BUN (Urea Nitrogen) 44 mg/dL (9.8-20.1); Calc. Creatinine Clearance 23 mL/min (70-130); Calcium 9.3 mg/dL (7.8-10.44); Carbon Dioxide 24 mmol/L (23-31); Chloride 106 mmol/L (98-107); Estimated GFR 28; Glucose 100 mg/dL (83-110); Potassium 3.6 mmol/L (3.5-5.1); Sodium 142 mmol/L (136-145)
[2024-04-20] MEDS: Pantoprazole DR 40 MG TAB PO SCH (08:22)
[2024-04-20] MEDS ORDERED: Acetaminophen 500 MG TAB PO PRN (09:34)
[2024-04-20] MEDS: Acetaminophen 325 MG (10.15 ML) UDCUP PO PRN (10:04)
[2024-04-20] MEDS: dilTIAZem CD 120 MG CAP PO SCH (10:04)
[2024-04-20] MEDS: Insulin Regular, Human 100 UNIT/ML 10 ML VIAL SC PRN (12:10)
[2024-04-20] MEDS ORDERED: Milk Of Magnesia 30 ML UDCUP PO PRN (17:36)
[2024-04-20] MEDS: Gabapentin 300 MG CAP PO SCH (21:18)
[2024-04-21] MEDS: Torsemide 20 MG TAB PO SCH (09:01)
[2024-04-21] MEDS: dilTIAZem CD 240 MG CAP PO SCH (09:02)
[2024-04-21] MEDS: Insulin Glargine 30 UNITS/0.3 ML VIAL SC SCH (16:41)
[2024-04-21] MEDS: Carvedilol 3.125 MG TAB PO SCH (18:28)
[2024-04-21] MEDS: Furosemide 40 MG (4 mL) VIAL IVP SCH (18:28)
[2024-04-21] MEDS: Enoxaparin 30 MG (0.3 mL) SYRINGE SC SCH (21:11)
[2024-04-22 04:03] LABS: #Basophils Less than 0.03 10x3/uL (0.0-0.2); %Basophils 0.2 % (0.0-1.0); %Eosinophils 3.1 % (0.0-10.0); %Lymphocytes 13.4 % (21.0-51.0); %Monocytes 13.5 % (0.0-10.0); %Neutrophils 69.4 % (42.0-75.0); Hematocrit 28.4 % (36.0-47.0); Hemoglobin 9.1 g/dL (12.0-16.0); Mean Corpuscular Hemoglobin 29.6 pg (27.0-31.0); Mean Corpuscular Volume 92.5 fL (78.0-98.0); Mean Platelet Volume 11.4 fL (7.4-10.4); Platelet Count 159 10x3/uL (130-400); RBC Distribution Width 15.7 % (11.5-14.5); Red Blood Cell (RBC) Count 3.07 mill/uL (4.20-5.40)
[2024-04-22 04:36] LABS: Anion Gap 16 mmol/L (10-20); BUN (Urea Nitrogen) 65 mg/dL (9.8-20.1); Calc. Creatinine Clearance 14 mL/min (70-130); Calcium 8.7 mg/dL (7.8-10.44); Carbon Dioxide 25 mmol/L (23-31); Chloride 103 mmol/L (98-107); Estimated GFR 16; Glucose 86 mg/dL (83-110); Potassium 4.1 mmol/L (3.5-5.1); Sodium 140 mmol/L (136-145)
[2024-04-22] MEDS: Sodium Chloride 0.9% 1,000 ML IV SCH (08:25)
[2024-04-22] MEDS: Insulin Glargine 30 UNITS/0.3 ML VIAL SC SCH (11:24)
[2024-04-22] MEDS: Carvedilol 3.125 MG TAB PO SCH (18:09)
[2024-04-22] MEDS: Dicyclomine 10 MG CAP PO SCH (20:48)
[2024-04-23 03:55] LABS: #Basophils Less than 0.03 10x3/uL (0.0-0.2); %Basophils 0.1 % (0.0-1.0); %Eosinophils 3.4 % (0.0-10.0); %Lymphocytes 15.9 % (21.0-51.0); %Monocytes 11.8 % (0.0-10.0); %Neutrophils 68.4 % (42.0-75.0); Hemoglobin 8.5 g/dL (12.0-16.0); Mean Corpuscular HGB CONC 31.5 g/dL (32.0-36.0); Mean Corpuscular Hemoglobin 29.9 pg (27.0-31.0); Mean Corpuscular Volume 95.1 fL (78.0-98.0); Mean Platelet Volume 12.1 fL (7.4-10.4); Platelet Count 164 10x3/uL (130-400); RBC Distribution Width 15.7 % (11.5-14.5); Red Blood Cell (RBC) Count 2.84 mill/uL (4.20-5.40)
[2024-04-23 04:23] LABS: Hemoglobin A1c 5.5 % (4.0-6.0)
[2024-04-23 04:39] LABS: Anion Gap 15 mmol/L (10-20); BUN (Urea Nitrogen) 74 mg/dL (9.8-20.1); Calc. Creatinine Clearance 16 mL/min (70-130); Calcium 8.7 mg/dL (7.8-10.44); Carbon Dioxide 21 mmol/L (23-31); Chloride 106 mmol/L (98-107); Estimated GFR 19; Glucose 106 mg/dL (83-110); Potassium 3.8 mmol/L (3.5-5.1); Sodium 138 mmol/L (136-145)
[2024-04-23 15:57] VITALS: BP 119/58; TEMP 97.7
[2024-04-23] MEDS: Isosorbide Dinitrate 20 MG TAB PO SCH (16:18)
[2024-04-23] MEDS: Sodium Bicarbonate Tab 325 MG TAB PO SCH (16:18)
[2024-04-23] MEDS: EPOETIN ALFA-EPBX (ESRD) 10,000 UNITS/ML VIAL SC SCH (18:16)
[2024-04-23 23:36] LABS: Campy jejuni + coli by PCR Negative (Negative); STEC Shiga Toxin 1+2 Negative (Negative); Salmonella spp. by PCR Negative (Negative); Shigella spp + EIEC by PCR Negative (Negative)
== END 2024-04-23 18:42 | disposition home or self-care (01) | DRG 291 ==
LOC: 2SW 04:07 → OBSVTOIN 04-21 16:12
PROVIDERS: ADMIT Student in an Organized Health Care Education/Training Program; ATTEND Hospitalist
DX: I13.0 Hypertensive heart and chronic kidney disease with heart failure and stage 1 through stage 4 chronic kidney disease, or unspecified chronic kidney disease (principal); I50.33 Acute on chronic diastolic (congestive) heart failure; I48.19 Other persistent atrial fibrillation; E87.20 Acidosis, unspecified; N17.9 Acute kidney failure, unspecified; E87.70 Fluid overload, unspecified; E78.5 Hyperlipidemia, unspecified; E11.22 Type 2 diabetes mellitus with diabetic chronic kidney disease; E11.51 Type 2 diabetes mellitus with diabetic peripheral angiopathy without gangrene; I25.10 Atherosclerotic heart disease of native coronary artery without angina pectoris; N18.30 Chronic kidney disease, stage 3 unspecified; R53.81 Other malaise; F41.9 Anxiety disorder, unspecified; Z66 Do not resuscitate; I16.0 Hypertensive urgency; D63.1 Anemia in chronic kidney disease; E11.21 Type 2 diabetes mellitus with diabetic nephropathy; Z88.0 Allergy status to penicillin; Z88.8 Allergy status to other drugs, medicaments and biological substances; Z88.6 Allergy status to analgesic agent; Z79.4 Long term (current) use of insulin; Z79.82 Long term (current) use of aspirin; Z79.899 Other long term (current) drug therapy; Z86.73 Personal history of transient ischemic attack (TIA), and cerebral infarction without residual deficits
CPT/HCPCS: 36415; 36416; 71046; 80048; 80053; 83036; 83880; 84484; 85025; 87505; 93306; 96374; 96376; G0378; J1650; J1815; J1940; J7050; Q5105

== ENCOUNTER 2024-06-12 11:57 | Inpatient (IN) | payer MEDICARE ==
[2024-06-12] MEDS ORDERED: Atropine Sulfate 1 mg/10 ml Syringe ONE (12:35)
[2024-06-12] MEDS ORDERED: CALCIUM GLUC 1 GM/NS 50 ML IV Bag ONE (12:42)
[2024-06-12] MEDS ORDERED: Glucagon 1 MG/ML KIT ONE (12:42)
[2024-06-12 12:54] LABS: #Basophils 0.03 10x3/uL (0.0-0.2); %Basophils 0.3 % (0.0-1.0); %Eosinophils 3.4 % (0.0-10.0); %Lymphocytes 14.9 % (21.0-51.0); %Monocytes 7.6 % (0.0-10.0); %Neutrophils 73.4 % (42.0-75.0); Hematocrit 33.9 % (36.0-47.0); Mean Corpuscular HGB CONC 32.4 g/dL (32.0-36.0); Mean Corpuscular Hemoglobin 29.9 pg (27.0-31.0); Mean Corpuscular Volume 92.1 fL (78.0-98.0); Mean Platelet Volume 11.3 fL (7.4-10.4); Platelet Count 186 10x3/uL (130-400); RBC Distribution Width 14.9 % (11.5-14.5); Red Blood Cell (RBC) Count 3.68 mill/uL (4.20-5.40)
[2024-06-12] MEDS ORDERED: DOBUTamine 500 mg/250 ml 250 ML ONE (12:56)
[2024-06-12 13:19] LABS: ALT (SGPT) 24 U/L (8-55); AST (SGOT) 30 U/L (5-34); Albumin 3.9 g/dL (3.4-4.8); Alkaline Phosphatase 108 U/L (40-110); Anion Gap 19 mmol/L (10-20); BUN (Urea Nitrogen) 76 mg/dL (9.8-20.1); Bilirubin, Total 0.4 mg/dL (0.2-1.2); Calc. Creatinine Clearance 0 mL/min (70-130); Calcium 9.3 mg/dL (7.8-10.44); Carbon Dioxide 22 mmol/L (23-31); Chloride 103 mmol/L (98-107); Estimated GFR 18; Globulin 3.6 g/dL (2.4-3.5); Glucose 99 mg/dL (83-110); Magnesium 2.3 mg/dL (1.6-2.6); Potassium 5.7 mmol/L (3.5-5.1); Protein, Total 7.5 g/dL (5.8-8.1); Sodium 138 mmol/L (136-145)
[2024-06-12 13:26] LABS: Troponin I Less than 0.010 ng/mL (< 0.028)
[2024-06-12] MEDS ORDERED: Insulin Regular, Human 100 UNIT/ML 10 ML VIAL ONE (13:50)
[2024-06-12] MEDS ORDERED: Ondansetron PF 4 MG/2 ML Vial IVP PRN (13:56)
[2024-06-12] MEDS ORDERED: Acetaminophen 325 MG TAB PO PRN (13:56)
[2024-06-12] MEDS ORDERED: Ondansetron ODT 4 MG TAB PO PRN (13:56)
[2024-06-12] MEDS ORDERED: Dextrose 50% Abboject 50 ML SYRINGE ONE (14:05)
[2024-06-12] MEDS ORDERED: DOBUTamine 500 mg/250 ml 250 ML IVPB SCH (14:30)
[2024-06-12 15:39] VITALS: BMI 25.2
[2024-06-12] MEDS ORDERED: Clindamycin/D5W 600 mg/50 ml Premix Bag ONE (15:52)
[2024-06-12] MEDS ORDERED: LevoFLOXacin D5W 500 mg (100 mL) BAG ONE (15:52)
[2024-06-12] MEDS ORDERED: Vancomycin HCl 500 MG VIAL ONE (15:52)
[2024-06-12] MEDS ORDERED: DOPamine 400 MG/D5W 250 ML 0 ML ONE (16:44)
[2024-06-12] MEDS: Sodium Bicarbonate Tab 325 MG TAB PO SCH (17:04)
[2024-06-12 18:30] LABS: Anion Gap 19 mmol/L (10-20); BUN (Urea Nitrogen) 73 mg/dL (9.8-20.1); Calc. Creatinine Clearance 17 mL/min (70-130); Carbon Dioxide 23 mmol/L (23-31); Chloride 102 mmol/L (98-107); Estimated GFR 20; Glucose 66 mg/dL (83-110); Potassium 4.9 mmol/L (3.5-5.1); Sodium 139 mmol/L (136-145)
[2024-06-13] MEDS: Sodium Chloride 0.9% 1,000 ML IV SCH (00:54)
[2024-06-13] MEDS: hydrALAZINE 20 MG/ML VIAL SLOW IVP PRN (01:27)
[2024-06-13 05:36] LABS: #Basophils Less than 0.03 10x3/uL (0.0-0.2); %Basophils 0.2 % (0.0-1.0); %Eosinophils 3.6 % (0.0-10.0); %Lymphocytes 10.6 % (21.0-51.0); %Monocytes 8.5 % (0.0-10.0); %Neutrophils 76.9 % (42.0-75.0); Hemoglobin 12.6 g/dL (12.0-16.0); Mean Corpuscular HGB CONC 33.2 g/dL (32.0-36.0); Mean Corpuscular Hemoglobin 29.3 pg (27.0-31.0); Mean Corpuscular Volume 88.4 fL (78.0-98.0); Mean Platelet Volume 11.7 fL (7.4-10.4); Platelet Count 173 10x3/uL (130-400); RBC Distribution Width 14.9 % (11.5-14.5)
[2024-06-13 05:58] LABS: Anion Gap 17 mmol/L (10-20); BUN (Urea Nitrogen) 61 mg/dL (9.8-20.1); Calc. Creatinine Clearance 21 mL/min (70-130); Calcium 10.2 mg/dL (7.8-10.44); Carbon Dioxide 22 mmol/L (23-31); Chloride 105 mmol/L (98-107); Estimated GFR 25; Glucose 107 mg/dL (83-110); Potassium 4.2 mmol/L (3.5-5.1); Sodium 140 mmol/L (136-145)
[2024-06-13] MEDS ORDERED: Heparin 5,000 UNITS/ML VIAL SC SCH (09:00)
[2024-06-13] MEDS: Nebivolol HCl 5 MG TAB PO SCH (11:13)
[2024-06-13] MEDS: dilTIAZem CD 240 MG CAP PO SCH (11:13)
[2024-06-13] MEDS: hydrALAZINE 25 MG TAB PO SCH (11:13)
[2024-06-13] MEDS: Minoxidil 2.5 MG TAB PO SCH (11:15)
[2024-06-13] MEDS: Empagliflozin 10 MG TAB PO SCH (11:15)
[2024-06-13] MEDS: Isosorbide Dinitrate 20 MG TAB PO SCH (11:15)
[2024-06-13] MEDS: Escitalopram Oxalate 10 mg Tablet PO SCH (11:15)
[2024-06-13] MEDS: Torsemide 20 MG TAB PO SCH (11:15)
[2024-06-13] MEDS: Pantoprazole DR 40 MG TAB PO SCH (11:15)
[2024-06-13 11:18] VITALS: BP 151/76
[2024-06-13 12:21] VITALS: TEMP 97.2
== END 2024-06-13 16:46 | disposition home or self-care (01) | DRG 242 ==
LOC: ERS 11:57 → ERHOLD 13:47 → IMCU/EMU 15:25
PROVIDERS: ADMIT Family Medicine; ATTEND Internal Medicine
PROC: 0JH604Z Insertion of Pacemaker, Single Chamber into Chest Subcutaneous Tissue and Fascia, Open Approach (ICD-10-PCS; principal; 2024-06-12)
PROC: 02HK3JZ Insertion of Pacemaker Lead into Right Ventricle, Percutaneous Approach (ICD-10-PCS; 2024-06-12)
DX: R00.1 Bradycardia, unspecified (principal); R57.0 Cardiogenic shock; I13.0 Hypertensive heart and chronic kidney disease with heart failure and stage 1 through stage 4 chronic kidney disease, or unspecified chronic kidney disease; I50.32 Chronic diastolic (congestive) heart failure; N17.9 Acute kidney failure, unspecified; N18.4 Chronic kidney disease, stage 4 (severe); E87.20 Acidosis, unspecified; E78.5 Hyperlipidemia, unspecified; E11.22 Type 2 diabetes mellitus with diabetic chronic kidney disease; I48.21 Permanent atrial fibrillation; I25.10 Atherosclerotic heart disease of native coronary artery without angina pectoris; Z96.653 Presence of artificial knee joint, bilateral; E11.51 Type 2 diabetes mellitus with diabetic peripheral angiopathy without gangrene; I49.5 Sick sinus syndrome; E87.5 Hyperkalemia; D63.1 Anemia in chronic kidney disease; Z88.2 Allergy status to sulfonamides; Z88.0 Allergy status to penicillin; Z95.5 Presence of coronary angioplasty implant and graft; Z88.6 Allergy status to analgesic agent; Z79.899 Other long term (current) drug therapy; Z88.8 Allergy status to other drugs, medicaments and biological substances; Z79.82 Long term (current) use of aspirin; Z79.4 Long term (current) use of insulin
CPT/HCPCS: 33207; 36415; 71045; 80048; 80053; 83735; 83880; 84484; 85025; 93005; 93010; 96365; 96366; 96375; C1786; C1898; J0360; J0461; J0613; J1250; J1265; J1611; J1815; J1956; J3370; J3490; J7999